=== PATIENT | male | born 1960 | race Caucasian/White ===

== ENCOUNTER 2019-12-09 13:20 | Emergency (ER) | payer BC, MEDICAID, OTHER ==
--- NOTE | 2019-12-09 13:55 | EDM.PDOC ---
ED HPI GENERAL MEDICAL PROBLEM - General Chief Complaint: Chest Pain Stated Complaint: CHEST PAIN/COUGH/SOB (2DAYS OUT OF QUARANTINE) Time Seen by Provider: 12/09/19 13:54 Source of Information: Reports: Patient History Limitations: Reports: No Limitations - History of Present Illness INITIAL COMMENTS - FREE TEXT/NARRATIVE: 59-year-old male attends the ED for evaluation of central chest pressure pain discomfort that he has had for the last 2 and half days. Feels that it somewhat worse today. It is worsened by coughing. Of note the patient was diagnosed with COVID-19 positivity on November 30. He developed symptoms 4 days prior with overwhelming fatigue. He is off quarantine as of today. Still coughing but very minimally but paroxysmal at times which makes the pain worse. He is concerned about possible coronary artery disease and/or PE. He has no history of coronary disease. He is on statins for high cholesterol and on blood pressure medication. He states his appetite is back to normal and he starting to be able to taste things again. He had only minimal diarrhea during this illness. Still some fatigue and plays out easily. Onset: Sudden Onset Date: 12/09/19 Duration: Day(s): (Central chest pressure discomfort for the last 2 days possibly 2-1/2 days.), Constant, Other (Rest pain is mostly felt in the center of his chest and worsened by coughing.) Location: Reports: Chest Quality: Reports: Ache, Pressure Severity: Moderate (1-2 at rest. It is worse with coughing.) Improves with: Reports: Rest Worsens with: Reports: Other (Worsened by cough eating) Context: Reports: Other. Denies: Activity, Exercise, Lifting, Sick Contact, Trauma Associated Symptoms: Reports: Chest Pain, Cough (Solving COVID-19 illness.), Malaise, Shortness of Breath, Weakness (Still some fatigue on exertion.). 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) (Still taking Motrin 400 mg every 5 hours.) Middle Chest Pain Score (Numeric/FACES): 5 - Related Data Allergies Allergy/AdvReac Type Severity Reaction Status Date / Time No Known Allergies Allergy Verified 12/09/19 13:49 Home Meds: Home Meds Albuterol Sulfate [Albuterol Sulfate Hfa] 8.5 gm IH Q3H PRN #1 hfa.aer.ad 12/09/19 [Rx] Aspirin [Aspirin EC] 81 mg PO DAILY 12/09/19 [History] Esomeprazole [NexIUM] 20 mg PO DAILY 12/09/19 [History] Hydrocodone/Chlorphen P-Stirex [Hydrocodone-Chlorphen ER Susp] 5 ml PO Q12H PRN #80 ml 12/09/19 [Rx] Ibuprofen [Advil] 400 mg PO Q6HR PRN 12/09/19 [History] Rosuvastatin [Crestor] 20 mg PO DAILY 12/09/19 [History] Tamsulosin [Flomax] 0.4 mg PO DAILY 12/09/19 [History] Past Medical History Cardiovascular History: Reports: High Cholesterol, Hypertension Social & Family History - Living Situation & Occupation Occupation: Employed ED ROS GENERAL - Review of Systems Review Of Systems: See Below Constitutional: Reports: Malaise, Weakness, Fatigue, Decreased Appetite (Diet is improving as is his sense of taste.). Denies: Fever, Chills, Weight Loss HEENT: Reports: Other (This is a sense of taste with the COVID-19 illness but it is coming back.) Respiratory: Reports: Shortness of Breath, Other (Antral chest pain or pressure discomfort that is worsened by coughing.). Denies: Wheezing, Pleuritic Chest Pain (Bit on exertion.), Cough, Sputum, Hemoptysis Cardiovascular: Reports: Chest Pain (History of present illness.), Blood Pressure Problem, Dyspnea on Exertion. Denies: Claudication, Edema, Lightheadedness, Orthopnea, Palpitations Endocrine: Reports: Fatigue GI/Abdominal: Reports: No Symptoms. Denies: Constipation, Diarrhea : Reports: No Symptoms Musculoskeletal: Reports: Other Skin: Reports: No Symptoms (Chest wall pain from coughing so much.) Neurological: Reports: No Symptoms Psychiatric: Reports: No Symptoms Hematologic/Lymphatic: Reports: No Symptoms Immunologic: Reports: No Symptoms ED EXAM, GENERAL - Physical Exam Exam: See Below Exam Limited By: No Limitations General Appearance: Alert, WD/WN, No Apparent Distress, Other (Temperature is 36.7. Heart rate was 83 and sinus. Respiratory to 16 with O2 sats of 97% room air. BP slightly elevated 149/85.) Eye Exam: Bilateral Eye: Normal Inspection (No scleral icterus or blepharal pallor.), PERRL Throat/Mouth: Normal Inspection, Normal Lips, Normal Oropharynx Head: Atraumatic, Normocephalic Neck: Normal Inspection, Supple, Non-Tender, Full Range of Motion. No: Carotid Bruit, Lymphadenopathy (L), Lymphadenopathy (R) Respiratory/Chest: No Respiratory Distress, Lungs Clear, Normal Breath Sounds, No Accessory Muscle Use, Chest Non-Tender. No: Rhonchi, Wheezing Cardiovascular: Normal Peripheral Pulses, Regular Rate, Rhythm, No Edema, No Gallop, No JVD, No Murmur, No Rub Peripheral Pulses: 3+: Carotid (L), Carotid (R), Posterior Tibial (L), Posterior Tibial (R), Dorsalis Pedis (L), Dorsalis Pedis (R) GI/Abdominal: Normal Bowel Sounds, Soft, Non-Tender, No Organomegaly, No Abnormal Bruit, No Mass, Pelvis Stable Back Exam: Normal Inspection, Full Range of Motion. No: CVA Tenderness (L), CVA Tenderness (R) Extremities: Normal Inspection, Normal Range of Motion, Non-Tender, No Pedal Edema Neurological: Alert, Oriented, CN II-XII Intact, Normal Cognition Psychiatric: Normal Affect, Normal Mood Skin Exam: Warm, Dry, Intact, Normal Color, No Rash #1 Interpretation EKG Date: 12/09/19 Time: 13:56 Rhythm: NSR Rate (Beats/Min): 80 [place]: LAD-Left [place]a Deviation (Mild left axis deviation -9 degrees) P-Wave: Present QRS: Other (Near Q waves leads III and aVF consider possible old inferior wall myocardial infarction) ST-T: Other (T wave flattening in aVL and lead to be 1 nonspecific finding) QT: Normal EKG Interpretation Comments: Borderline ECG Course - Vital Signs Last Recorded V/S: Last Vital Signs Temp 36.7 C 12/09/19 13:43 Pulse 83 12/09/19 13:43 Resp 16 12/09/19 13:43 BP 149/85 H 12/09/19 13:43 Pulse Ox 97 12/09/19 13:43 - Orders/Labs/Meds Orders: Active Orders 24 hr Category Date Time Status Chest 1V Frontal [CR] Stat Exams 12/09/19 13:56 Taken Labs: Laboratory Tests 12/09/19 12/09/19 12/09/19 Range/Units 13:57 14:15 14:15 WBC 3.88 L (4.23-9.07) K/mm3 RBC 5.21 (4.63-6.08) M/mm3 Hgb 15.2 D (13.7-17.5) gm/dl Hct 45.0 (40.1-51.0) % MCV 86.4 (79.0-92.2) fl MCH 29.2 (25.7-32.2) pg MCHC 33.8 (32.2-35.5) g/dl RDW Std Deviation 44.0 H (35.1-43.9) fL Plt Count 147 L (163-337) K/mm3 MPV 9.2 L (9.4-12.3) fl Neut % (Auto) 56.1 (34.0-67.9) % Lymph % (Auto) 25.3 (21.8-53.1) % [place] % (Auto) 17.5 H (5.3-12.2) % Eos % (Auto) 0.5 L (0.8-7.0) Baso % (Auto) 0.3 (0.1-1.2) % Neut # (Auto) 2.18 (1.78-5.38) K/mm3 Lymph # (Auto) 0.98 L (1.32-3.57) K/mm3 [place] # (Auto) 0.68 (0.30-0.82) K/mm3 Eos # (Auto) 0.02 L (0.04-0.54) K/mm3 Baso # (Auto) 0.01 (0.01-0.08) K/mm3 Manual Slide Review Abnormal smear PT 10.7 (9.7-11.7) SECONDS INR 1.00 APTT 29 (22-31) SECONDS D-Dimer, Quantitative (0.19-0.50) mg/L Sodium 138 (136-145) mEq/L Potassium 3.5 (3.5-5.1) mEq/L Chloride 101 (98-107) mEq/L Carbon Dioxide 26 (21-32) mEq/L Anion Gap 14.5 (5-15) BUN 22 H (7-18) mg/dL Creatinine 1.0 (0.7-1.3) mg/dL Est Cr Clr Drug Dosing 90.19 mL/min Estimated GFR (MDRD) > 60 (>60) mL/min BUN/Creatinine Ratio 22.0 H (14-18) Glucose 122 H (80-115) mg/dL Calcium 8.8 (8.5-10.1) mg/dL Magnesium 1.7 L (1.8-2.4) mg/dl Ferritin (26-388) ng/ml Total Bilirubin 0.6 (0.2-1.0) mg/dL AST 27 (15-37) U/L ALT 43 (16-63) U/L Alkaline Phosphatase 67 (46-116) U/L Lactate Dehydrogenase 196 (85-227) U/L CK-MB (CK-2) 1.1 (0-3.6) ng/ml Troponin I < 0.017 (0.00-0.056) ng/mL C-Reactive Protein 2.6 H* (<1.0) mg/dL NT-Pro-B Natriuret Pep (0-125) pg/mL Total Protein 7.4 (6.4-8.2) g/dl Albumin 3.6 (3.4-5.0) g/dl Globulin 3.8 gm/dL Albumin/Globulin Ratio 1.0 (1-2) 12/09/19 12/09/19 12/09/19 Range/Units 14:15 14:15 14:15 WBC (4.23-9.07) K/mm3 RBC (4.63-6.08) M/mm3 Hgb (13.7-17.5) gm/dl Hct (40.1-51.0) % MCV (79.0-92.2) fl MCH (25.7-32.2) pg MCHC (32.2-35.5) g/dl RDW Std Deviation (35.1-43.9) fL Plt Count (163-337) K/mm3 MPV (9.4-12.3) fl Neut % (Auto) (34.0-67.9) % Lymph % (Auto) (21.8-53.1) % [place] % (Auto) (5.3-12.2) % Eos % (Auto) (0.8-7.0) Baso % (Auto) (0.1-1.2) % Neut # (Auto) (1.78-5.38) K/mm3 Lymph # (Auto) (1.32-3.57) K/mm3 [place] # (Auto) (0.30-0.82) K/mm3 Eos # (Auto) (0.04-0.54) K/mm3 Baso # (Auto) (0.01-0.08) K/mm3 Manual Slide Review PT (9.7-11.7) SECONDS INR APTT (22-31) SECONDS D-Dimer, Quantitative 0.69 H (0.19-0.50) mg/L Sodium (136-145) mEq/L Potassium (3.5-5.1) mEq/L Chloride (98-107) mEq/L Carbon Dioxide (21-32) mEq/L Anion Gap (5-15) BUN (7-18) mg/dL Creatinine (0.7-1.3) mg/dL Est Cr Clr Drug Dosing mL/min Estimated GFR (MDRD) (>60) mL/min BUN/Creatinine Ratio (14-18) Glucose (80-115) mg/dL Calcium (8.5-10.1) mg/dL Magnesium (1.8-2.4) mg/dl Ferritin 1556 H (26-388) ng/ml Total Bilirubin (0.2-1.0) mg/dL AST (15-37) U/L ALT (16-63) U/L Alkaline Phosphatase (46-116) U/L Lactate Dehydrogenase (85-227) U/L CK-MB (CK-2) (0-3.6) ng/ml Troponin I (0.00-0.056) ng/mL C-Reactive Protein (<1.0) mg/dL NT-Pro-B Natriuret Pep 13 (0-125) pg/mL Total Protein (6.4-8.2) g/dl Albumin (3.4-5.0) g/dl Globulin gm/dL Albumin/Globulin Ratio (1-2) Meds: Medications Discontinued Medications Generic Name Dose Route Start Last Admin Trade Name Freq PRN Reason Stop Dose Admin Sodium Chloride 1,000 mls @ 150 mls/hr 12/09/19 14:00 12/09/19 14:18 Normal Saline IV 150 mls/hr [facility] Administration - Radiology Interpretation Free Text/Narrative:: 59-year-old male presents to the ED for evaluation of central chest pressure pain discomfort that he has had for the last 2 to 2-1/2 days. Of note he has been coughing extremely hard at times during COVID-19 illness which was diagnosed on 30 November. He is off quarantine as of today. He developed symptoms probably 4 days prior to that. He feels for the most part he has recovered other than the central chest discomfort worsened by cough. His O2 sats are 97% on room air. He will have a cardiac work-up and a D-dimer. Chest x-ray as well but he is afebrile at present. Suspect chest wall pain from coughing so much. - Re-Assessments/Exams Free Text/Narrative Re-Assessment/Exam: 12/09/19 16:14 Chest x-ray done portably reveals mild cardiomegaly. Mildly hyperinflated lung pastor. No lung infiltrates identified. No pleural effusions no pneumothorax. There is however a 1.2 cm nodular opacity projecting over the anterior right second rib underlying lung nodule cannot be excluded. 12/09/19 16:16 White count is low at 3.88. Differential is 56% neutrophils on the auto differential. Hemoglobin is 15.2 with hematocrit of 45.0. Platelet counts 147,000 slightly low. Of note there is an increased amount of monocytes at 17.5%. PT was 10.7 with an INR of 1.0 PTT is 29 D-dimer slightly elevated at 0.69. Of note he is just getting over COVID-19 illness. Sodium 138 with potassium 3.5. Chloride 101 with a bicarb of 26. Anion gap is 14.5 BUN is 22 with a creatinine of 1.0. GFR is greater than 60. Glucose is 122 with a calcium of 8.8. Magnesium slightly low at 1.7. Serum ferritin remains elevated at 1556. Liver function is normal LDH is back to normal at 196. CK-MB fraction is 1.1 troponin I is less than 0.017. C-reactive protein is 2.6. BNP is 13 total protein 7.4 with an albumin fraction of 3.6. 12/09/19 16:24 Patient reassured of the findings of the chest x-ray ECG and lab work. Pain in his central chest is still secondary to severe paroxysmal cough related to the COVID-19 virus. Plan will be to treat him with albuterol metered-dose inhaler 2 puffs every 3-4 hours as needed to help loosen up secretions and Tussionex cough syrup 5 mils twice daily for cough relief. Departure - Departure Time of Disposition: 16:25 Disposition: Home, Self-Care 01 Condition: Fair Clinical Impression: Non-cardiac chest pain, Anterior chest wall pain, Viral bronchitis Prescriptions: Albuterol Sulfate [Albuterol Sulfate Hfa] 8.5 gm IH Q3H PRN #1 hfa.aer.ad PRN Reason: Wheezing/shortness of breath Hydrocodone/Chlorphen P-Stirex [Hydrocodone-Chlorphen ER Susp] 5 ml PO Q12H PRN #80 ml PRN Reason: cough relief Instructions: Chest Wall Pain, [id number] Referrals: Yanet Esparza [facility]CH[facility] [Primary Care Provider] - Forms: ED Department Discharge Additional Instructions: Evaluation in the emergency room today in regards to persistent mid anterior chest pain particular over the last 2-1/2 days. Aggravated by coughing. You have resolving COVID-19 illness and finished your 14 days of quarantine. Chest x-ray done shows no evidence of pneumonia or inflammation of the lungs from COVID-19 viral illness. Heart size is minimally enlarged. Lab work shows no evidence of heart attack or blood clots in the lung. White count is actually low at 3.44 still suggesting viral illness without evidence of a bacterial pneumonia. Treatment is therefore cough control. Suggest use of Tussionex cough syrup 5 mils every 12 hours as necessary to relieve cough. Take 5 mils about an hour before going to bed as it takes a good hour to work. It can be taken with or without food. Second medicine is to be albuterol metered-dose inhaler 2 puffs every 3 hours as needed for relief of cough, wheezing or s hortness of breath. It helps bring up the sputum or phlegm up out of the lungs. Follow-up with personal care physician if any further problems occur or return to the ED if you develop any fever or chills. Sepsis Event Note (ED) - Evaluation Sepsis Screening Result: No Definite Risk - Focused Exam Vital Signs: Vital Signs Temp Pulse Resp BP Pulse Ox 12/09/19 13:43 36.7 C 83 16 149/85 H 97 - My Orders Last 24 Hours: My Active Orders 12/09/19 13:56 Chest 1V Frontal [CR] Stat - Assessment/Plan Last 24 Hours: My Active Orders 12/09/19 13:56 Chest 1V Frontal [CR] Stat
[2019-12-09] MEDS ORDERED: Sodium Chloride 0.9% 1,000 ML IV SCH (14:00)
== END 2019-12-09 16:41 | disposition home or self-care (01) ==
LOC: JD.ED 13:20
DX: U07.1 COVID-19 (principal); J20.8 Acute bronchitis due to other specified organisms; I10 Essential (primary) hypertension; Z79.82 Long term (current) use of aspirin; Z79.899 Other long term (current) drug therapy
CPT/HCPCS: 36415; 71045; 80053; 82553; 82728; 83615; 83735; 83880; 84484; 85025; 85379; 85610; 85730; 86140; 93005; 99285; J7030